=== PATIENT | male | born 1985 | race Caucasian/White ===

== ENCOUNTER 2022-11-21 22:58 | Emergency (ER) | payer OTHER ==
--- NOTE | 2022-11-21 23:24 | ED ---
Fall HPI - General Source: patient Mode of arrival: EMS Limitations: altered mental status - History of Present Illness MD Complaint: fall -: hour(s) Fall From: standing When Fall Occurred: 4-6 hours [employer] Fall Witnessed: yes, by living facility staff Place Fall Occurred: other Loss of Consciousness: unsure Prolonged Down Time?: no Location: face Severity: moderate Context: tripped/slipped Associated Symptoms: denies <Micah Casanova - Last Filed: 11/21/22 23:21> <Joanne Mejia - Last Filed: 11/25/22 23:43> - General Stated Complaint: Altered mental status Time Seen by Provider: 11/21/22 23:11 - History of Present Illness Initial Comments: 's patient is a 37-year-old man sent here from [facility]. The patient had fallen in the afternoon striking his left orbit. He states there was pain and swelling but he did not want to have hospital evaluation at that time. In light of this the patient was reportedly discharged from [place]. He was subsequently found on the facility grounds and was disoriented. He told staff he had taken Xanax which she is not prescribed. (Micah Casanova) Review of Systems ROS Other: All systems not noted in ROS Statement are negative. Constitutional: Denies: weakness Eyes: Reports: eye pain. Denies: vision change ENT: Denies: congestion Respiratory: Denies: cough, dyspnea Cardiovascular: Denies: chest pain Gastrointestinal: Denies: abdominal pain, vomiting Neurological: Reports: as per HPI, headache Hematological/Lymphatic: Denies: easy bleeding <Micah Casanova - Last Filed: 11/21/22 23:21> ROS Other: All systems not noted in ROS Statement are negative. <Joanne Mejia - Last Filed: 11/25/22 23:43> ROS Statement: Those systems with pertinent positive or pertinent negative responses have been documented in the HPI. General Exam General appearance: alert, in no apparent distress Head exam: Present: normocephalic Eye exam: Present: PERRL, EOMI, periorbital swelling, periorbital tenderness. Absent: scleral icterus, conjunctival injection Neck exam: Present: normal inspection, full ROM. Absent: tenderness Respiratory exam: Present: normal lung sounds bilaterally. Absent: respiratory distress, wheezes, rales, rhonchi, stridor, chest wall tenderness Cardiovascular Exam: Present: regular rate, normal rhythm, normal heart sounds. Absent: systolic murmur, diastolic murmur, rubs, gallop GI/Abdominal exam: Present: soft. Absent: distended, tenderness, guarding, rebound Extremities exam: Present: normal inspection Back exam: Absent: vertebral tenderness Neurological exam: Present: alert, CN II-XII intact. Absent: oriented X3, motor sensory deficit Skin exam: Present: warm, dry, intact, normal color. Absent: rash <Micah Casanova - Last Filed: 11/21/22 23:21> Course Vital Signs 11/21/22 11/22/22 11/22/22 23:13 00:44 02:30 Temperature 97.7 F Pulse Rate 83 76 79 Respiratory 16 18 16 Rate Blood Pressure 118/69 112/71 124/82 O2 Sat by Pulse 93 L 93 L 99 Oximetry 11/22/22 03:05 Temperature Pulse Rate 82 Respiratory 14 Rate Blood Pressure 130/68 O2 Sat by Pulse 98 Oximetry Medical Decision Making <Joanne Mejia - Last Filed: 11/25/22 23:43> - Medical Decision Making Was pt. sent in by a medical professional or institution (, PA, SIGNS AND DISPLAYS SALES REPRESENTATIVE, urgent care, hospital, or [facility]...) When possible be specific @ -[facility] Did you speak to anyone other than the patient for history (EMS, parent, family, police, friend...)? What history was obtained from this source @ -EMS Did you review nursing and triage notes (agree or disagree)? Why? @ -I reviewed and agree with nursing and triage notes Were old charts reviewed (outside hosp., previous admission, EMS record, old EKG, old radiological studies, urgent care reports/EKG's, [facility] records)? Report findings @ -No old charts were reviewed Differential Diagnosis (chest pain, altered mental status, abdominal pain women, abdominal pain men, vaginal bleeding, weakness, fever, dyspnea, syncope, headache, dizziness, GI bleed, back pain, seizure, CVA, palpatations, mental health, musculoskeletal)? @ -SDH, SAH, drug overdose, alcohol intoxication EKG interpreted by me (3pts min.). @ -Not done X-rays interpreted by me (1pt min.). @ -None done CT interpreted by me (1pt min.). @ -Yes- no acute process U/S interpreted by me (1pt. min.). @ -None done What testing was considered but not performed or refused? (CT, X-rays, U/S, labs)? Why? @ -None What meds were considered but not given or refused? Why? @ -None Did you discuss the management of the patient with other professionals (professionals i.e. DrKelly, PA, SIGNS AND DISPLAYS SALES REPRESENTATIVE, lab, RT, psych nurse, social work nurse, business trainer, teacher, ship's electronic warfare officer, transplant case manager)? Give summary @ -No Was smoking cessation discussed for >3mins.? @ -No Was critical care preformed (if so, how long)? @ -No Were there social determinants of health that impacted care today? How? (Homelessness, low income, unemployed, alcoholism, drug addiction, transportation, low edu. Level, literacy, decrease access to med. care, prison, rehab)? @ -Patient came from rehab Was there de-escalation of care discussed even if they declined (Discuss DNR or withdrawal of care, Hospice)? DNR status @ -No What co-morbidities impacted this encounter? (DM, HTN, Smoking, COPD, CAD, Cancer, CVA, ARF, Chemo, Hep., AIDS, mental health diagnosis, sleep apnea, morbid obesity)? @ -None Was patient admitted / discharged? Hospital course, mention meds given and route, prescriptions, significant lab abnormalities, going to OR and other pertinent info. @ -Upon arrival patient was placed into room 10. Thorough history and physical exam was performed. Patient is sent for CT of his head and facial bones. Ct demonstrates nasomaxillary suture with a possible age indeterminate fracture. Patient is monitored in the ER for several hours. He does become more weak. He states that he will go back to [place] [facility]. Called and spoke with [facility] and they are agreeable to take the patient back. He is informed of the CT findings. He needs to follow-up with his primary care and return for any new or worsening symptoms Undiagnosed new problem with uncertain prognosis? @ -yes Drug Therapy requiring intensive monitoring for toxicity (Heparin, Nitro, Insulin, Cardizem)? @ -No Were any procedures done? @ -No Diagnosis/symptom? @ -acute toxic encephalopathy, benzo abuse, blunt head trauma Acute, or Chronic, or Acute on Chronic? @ -acute Uncomplicated (without systemic symptoms) or Complicated (systemic symptoms)? @ -complicated Side effects of treatment? @ -No Exacerbation, Progression, or Severe Exacerbation? @ -No Poses a threat to life or bodily function? How? (Chest pain, [place], [place], pneumonia, PE, COPD, DKA, ARF, appy, cholecystitis, CVA, Diverticulitis, Homicidal, Suicidal, threat to staff... and all critical care pts) @ -Patient could overdose on benzos and end up in respiratory arrest (Joanne Mejia) Disposition <Micah Casanova - Last Filed: 11/21/22 23:21> Is patient prescribed a controlled substance at d/c from ED?: No Time of Disposition: 02:54 <Joanne Mejia - Last Filed: 11/25/22 23:43> Clinical Impression: Benzodiazepine abuse, Blunt head trauma Disposition: HOME SELF-CARE Condition: Stable Instructions (If sedation given, give patient instructions): Benzodiazepine Abuse (ED) Additional Instructions: The CAT scan of your head was negative. We strongly recommend you do not take medications that are not prescribed to you Referrals: Nonstaff,Physician [Primary Care Provider] - 1-2 days
[2022-11-21 23:27] VITALS: TEMP 97.7
--- NOTE | 2022-11-22 00:49 | CT ---
EXAM: CT Head Without Intravenous Contrast CLINICAL HISTORY: ITS.REASON CT Reason: fall injury TECHNIQUE: Axial computed tomography images of the head/brain without intravenous contrast. CTDI is 22.6 mGy and DLP is 665.7 mGy-cm. This CT exam was performed using one or more of the following dose reduction techniques: automated exposure control, adjustment of the mA and/or kV according to patient size, and/or use of iterative reconstruction technique. COMPARISON: No relevant prior studies available. FINDINGS: Brain: Unremarkable. No hemorrhage. No significant white matter disease. No edema. Ventricles: Unremarkable. No ventriculomegaly. Bones/joints: Unremarkable. No acute fracture. Soft tissues: Unremarkable. Sinuses: Unremarkable as visualized. No acute sinusitis. Mastoid air cells: Unremarkable as visualized. No mastoid effusion. IMPRESSION: No evidence of acute intracranial abnormality.
--- NOTE | 2022-11-22 00:52 | CT ---
EXAM: CT Maxillofacial Without Intravenous Contrast CLINICAL HISTORY: ITS.REASON CT Reason: fall injury TECHNIQUE: Axial computed tomography images of the face without intravenous contrast. CTDI is 22.6 mGy and DLP is 665.7 mGy-cm. This CT exam was performed using one or more of the following dose reduction techniques: automated exposure control, adjustment of the mA and/or kV according to patient size, and/or use of iterative reconstruction technique. COMPARISON: No relevant prior studies available. FINDINGS: Bones/joints: Slight deformity of the left frontal process of the maxilla near the nasomaxillary suture. Otherwise no acute fracture. No dislocation. Soft tissues: Unremarkable. Orbits: Unremarkable. Sinuses: Unremarkable. No air-fluid levels. IMPRESSION: 1. Slight deformity of the left frontal process of the maxilla near the nasomaxillary suture. Possible age-indeterminate fracture. 2. No other findings of fracture or dislocation.
[2022-11-22 05:59] VITALS: BP 130/68; PULSE 82; RESP 14
== END 2022-11-22 03:20 | disposition home or self-care (01) ==
LOC: EC 22:58
DX: S09.90XA Unspecified injury of head, initial encounter (principal); F13.10 Sedative, hypnotic or anxiolytic abuse, uncomplicated; W01.0XXA Fall on same level from slipping, tripping and stumbling without subsequent striking against object, initial encounter; Y92.89 Other specified places as the place of occurrence of the external cause
CPT/HCPCS: 70450; 70486; 99284